=== PATIENT | female | born 1955 | race Hispanic/Latino ===

== ENCOUNTER 2024-08-25 13:13 | Outpatient (CLI) | payer OTHER | END 2024-08-25 13:14 | disposition home or self-care (01) | LOC: CSHMAMMO 13:13 | PROVIDERS: ATTEND Student in an Organized Health Care Education/Training Program | DX: Z12.31 Encounter for screening mammogram for malignant neoplasm of breast (principal); Z13.820 Encounter for screening for osteoporosis; Z80.3 Family history of malignant neoplasm of breast | CPT/HCPCS: 77063; 77067; 77080 ==

== ENCOUNTER 2025-07-31 09:04 | Outpatient (CLI) | payer MEDICARE | END 2025-07-31 09:05 | disposition home or self-care (01) | LOC: CSHMAMMO 09:04 | PROVIDERS: ATTEND Family Medicine | DX: N64.4 Mastodynia (principal) | CPT/HCPCS: 76642; 77066; G0279 ==